=== PATIENT | female | born 1980 | race Hispanic/Latino ===

== ENCOUNTER 2020-01-20 22:04 | Emergency (ER) | payer SELFPAY ==
[~2020-01-20] VITALS: Ht 165.1 cm; Wt 86.2 kg
[2020-01-20] MEDS ORDERED: ACETAMINOPHEN 325 MG TAB PO ONE (23:15)
[2020-01-20] MEDS ORDERED: ACETAMINOPHEN 325 MG TAB ONE (23:16)
--- NOTE | 2020-01-20 23:36 | Emergency Department Note ---
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 Historian: Patient Arrival Mode: Car Onset (how long ago): day(s) (3) Location: HEAD, BODY Quality: FEVER, COUGH, HEADACHE, LOSS OF SMELL Radiation: Reports non-radiation Severity: moderate Onset quality: gradual Duration (how long): day(s) (3) Timing of current episode: constant Progression: worsening Chronicity: new Context: Reports other (PT'S MOTHER POSITIVE FOR COVID AND SHE IS MOTHERS CAREGIVER); Denies recent illness, Denies recent surgery Relieving factors: none Exacerbating factors: none Associated symptoms: Reports denies other symptoms Treatments prior to arrival: none Past Medical/Family History Physician Review I have reviewed the patient's past medical and family history. Any updates have been documented here. Past Medical History Recent Fever: Yes Clinical Suspicion of Infectio: Yes New/Unexplained Change in Ment: No Past Medical History: Diabetes Other Medical History: PSORIASIS Other Surgery: ABDOMINOPLASTY Family History Family history of heart diseas: No Other family history HTN,DM Other Last Tetanus: OOD Review of Systems Review of Systems Constitutional: Reports as per HPI EENTM: Reports no symptoms Cardiovascular: Reports no symptoms Respiratory: Reports as per HPI Gastrointestinal: Reports no symptoms Genitourinary: Reports no symptoms Musculoskeletal: Reports no symptoms Integumentary: Reports no symptoms Neurological: Reports no symptoms Psychological: Reports no symptoms Endocrine: Reports no symptoms Hematological/Lymphatic: Reports no symptoms Physical Exam Related Data Allergies: Coded Allergies: No Known Allergies (Unverified , 03/25/17) Triage Vital Signs Vital Signs Date Time Temp Pulse Resp B/P (MAP) Pulse Ox O2 Delivery O2 Flow Rate FiO2 01/20/20 22:56 100.1 111 18 116/77 95 Vital signs reviewed: Yes Physical Exam CONSTITUTIONAL Constitutional: Present well-developed, Present well-nourished HENT HENT: Present normocephalic, Present atraumatic, Present oropharynx clear/moist, Present nose normal HENT L/R: Present left ext ear normal, Present right ext ear normal EYES Eyes: Reports PERRL, Reports conjunctivae normal NECK Neck: Present ROM normal PULMONARY Pulmonary: Present effort normal, Present breath sounds normal CARDIOVASCULAR Cardiovascular: Present regular rhythm, Present heart sounds normal, Present capillary refill normal, Present tachycardia (110) GASTROINTESTINAL Abdominal: Present soft, Present nontender, Present bowel sounds normal GENITOURINARY Genitourinary: Present exam deferred SKIN Skin: Present warm, Present dry MUSCULOSKELETAL Musculoskeletal: Present ROM normal NEUROLOGICAL Neurological: Present alert, Present oriented x 3, Present no gross motor or sensory deficits PSYCHOLOGICAL Psychological: Present mood/affect normal, Present judgement normal Results Laboratory Laboratory Laboratory Tests Test 01/21/20 02:12 01/20/20 23:10 01/20/20 23:07 01/20/20 23:06 Lactic Acid Level 0.9 mmol/L (0.5-2.0) 2.7 mmol/L (0.5-2.0) Urine Color Yellow (YELLOW) Urine Clarity Clear (CLEAR) Urine pH 6 (5 - 7) Urine Specific Roslyn 1.015 (1.010-1.025) Urine Protein Negative (NEGATIVE) Urine Glucose (UA) 2+ (NEGATIVE) Urine Ketones Negative (NEGATIVE) Urine Blood 1+ (NEGATIVE) Urine Nitrite Negative (NEGATIVE) Urine Bilirubin Negative (NEGATIVE) Urine Urobilinogen 1 mg/dL (0.2 - 1) Urine Leukocyte Esterase Negative (NEGATIVE) Urine RBC 6-10 /HPF (0-5) Urine WBC 21-50 /HPF (0-5) Urine Epithelial Cells Few /LPF (NONE) Urine Transitional Epithelial Cells Few (NONE) Urine Bacteria Many /HPF (NONE) White Blood Count 3.80 x10e3/uL (4.8-10.8) Red Blood Count 6.00 x10e6/uL (3.6-5.1) Hemoglobin 13.7 g/dL (12.0-16.0) Hematocrit 44.1 % (34.2-44.1) Mean Corpuscular Volume 73.5 fL (81-99) Mean Corpuscular Hemoglobin 22.8 pg (28-32) Mean Corpuscular Hemoglobin Concent 31.1 g/dL (31-35) Red Cell Distribution Width 15.9 % (11.7-14.4) Platelet Count 110 x10e3/uL (140-360) Neutrophils (%) (Auto) 55.7 % (38.7-80.0) Lymphocytes (%) (Auto) 39.2 % (18.0-39.1) Monocytes (%) (Auto) 4.2 % (4.4-11.3) Eosinophils (%) (Auto) 0.3 % (0.0-6.0) Basophils (%) (Auto) 0.3 % (0.0-1.0) Neutrophils # (Auto) 2.1 (2.1-6.9) Lymphocytes # (Auto) 1.5 (1.0-3.2) Monocytes # (Auto) 0.2 (0.2-0.8) Eosinophils # (Auto) 0.0 (0.0-0.4) Basophils # (Auto) 0.0 (0.0-0.1) Absolute Immature Granulocyte (auto 0.01 x10e3/uL (0-0.1) Sodium Level 138 mmol/L (136-145) Potassium Level 3.8 mmol/L (3.5-5.1) Chloride Level 100 mmol/L (98-107) Carbon Dioxide Level 24 mmol/L (22-29) Anion Gap 17.8 mmol/L (8-16) Blood Urea Nitrogen 8 mg/dL (7-26) Creatinine 0.69 mg/dL (0.57-1.11) Estimat Glomerular Filtration Rate > 60 ML/MIN (60-) BUN/Creatinine Ratio 12 (6-25) Glucose Level 167 mg/dL (74-118) Calcium Level 8.9 mg/dL (8.4-10.2) Total Bilirubin 0.2 mg/dL (0.2-1.2) Aspartate Amino Transf (AST/SGOT) 20 IU/L (5-34) Alanine Aminotransferase (ALT/SGPT) 27 IU/L (0-55) Alkaline Phosphatase 94 IU/L (40-150) Total Protein 7.3 g/dL (6.5-8.1) Albumin 3.4 g/dL (3.5-5.0) Globulin 3.9 g/dL (2.3-3.5) Albumin/Globulin Ratio 0.9 (0.8-2.0) Laboratory Tests Test 01/20/20 23:06 Lab results reviewed: Yes Imaging Imaging results reviewed: Yes Impressions EXAMINATION: PA and lateral views of the chest. COMPARISON: None CLINICAL HISTORY: Fever, headache, cough, bodyaches DISCUSSION: Lines/tubes: None. Lungs: The lungs are well inflated. Ill-defined vague patchy interstitial opacities in the left mid and lower lung and to a lesser degree right mid lung. There is no evidence of consolidation or pulmonary edema. Pleura: There is no pleural effusion or pneumothorax. Heart and mediastinum: Cardiomediastinal silhouette is unremarkable. Pulmonary vasculature is normal. Bones and soft tissues: No acute bony abnormalities. IMPRESSION: Findings in bilateral lungs may reflect early pneumonia (including viral) in the appropriate clinical setting Signed by: Dr. Liborio Garcia M.D. on 01/20/2020 11:48 PM Assessment & Plan Medical Decision Making MDM PT WITH BODYACHE, FEVER, COUGH, SOB WITH EXPOSURE TO FAMILY MEMBER WITH COVID 19 CBC, CMP, LACTIC ACID, CXR, UA, URINE CULTURE, BLOOD CULTURE, COVID 19, TO EVAL FOR SEPSIS, PNEUMONIA, UTI, COVID 19, ELECTROLYTE ABNORMALITY. ROCEPHIN 1 GRAM IV ORDERED TYLENOL 650 MG PO ORDERED NS 1 LITER IV BOLUS ORDERED PT WITH COVID 19 AND UTI, PT VITALS STABLE, RR 18, OXYGEN SATURATION ON ROOM AIR 97% ON ROOM AIR DISCHARGED HOME WITH OMNICEF 300 MG PO BID FOR 10 DAYS, ZPAK DIRECTED Assessment & Plan Final Impression: (1) COVID-19 (2) UTI (urinary tract infection) (3) Fever Depart Disposition: HOME, SELF-CARE Last Vital Signs Date Time Temp Pulse Resp B/P (MAP) Pulse Ox O2 Delivery O2 Flow Rate FiO2 01/20/20 22:56 100.1 111 18 116/77 95 Medications in the ED Acetaminophen 650 mg ONCE ONCE PO ; Start 01/20/20 at 23:15; Stop 01/20/20 at 23:16; Status DC Acetaminophen 650 mg STK-MED ONCE .ROUTE ; Start 01/20/20 at 23:16; Stop 12/29 10/16 at 23:11; Status DC FERNANDO ESPINOZA MD Jan 20, 2020 23:36
[2020-01-20 23:44] LABS: BASOPHILS % 0.3 % (0.0-1.0); EOSINOPHILS % 0.3 % (0.0-6.0); HEMATOCRIT 44.1 % (34.2-44.1); HEMOGLOBIN 13.7 g/dL (12.0-16.0); LYMPHOCYTES # (AUTO) 1.5 (1.0-3.2); LYMPHOCYTES % 39.2 % (18.0-39.1); MEAN CORPUSCULAR HEMOGLOBIN 22.8 pg (28-32); MEAN CORPUSCULAR HGB CONC 31.1 g/dL (31-35); MEAN CORPUSCULAR VOLUME 73.5 fL (81-99); MONOCYTES # (AUTO) 0.2 (0.2-0.8); MONOCYTES % 4.2 % (4.4-11.3); NEUTROPHILS # (AUTO) 2.1 (2.1-6.9); NEUTROPHILS % 55.7 % (38.7-80.0); PLATELET COUNT 110 x10e3/uL (140-360); RED CELL DISTRIBUTION WIDTH 15.9 % (11.7-14.4)
[2020-01-20] MEDS ORDERED: SODIUM CHLORIDE 0.9% 1000ML 1,000 ML IV ONE (23:45)
[2020-01-20] MEDS ORDERED: CEFTRIAXONE SOD 1 GM/NS 50 ML 50 ML IV ONE (23:45)
--- NOTE | 2020-01-20 23:52 | Diagnostic Imaging Report ---
EXAMINATION: PA and lateral views of the chest. COMPARISON: None CLINICAL HISTORY: Fever, headache, cough, bodyaches DISCUSSION: Lines/tubes: None. Lungs: The lungs are well inflated. Ill-defined vague patchy interstitial opacities in the left mid and lower lung and to a lesser degree right mid lung. There is no evidence of consolidation or pulmonary edema. Pleura: There is no pleural effusion or pneumothorax. Heart and mediastinum: Cardiomediastinal silhouette is unremarkable. Pulmonary vasculature is normal. Bones and soft tissues: No acute bony abnormalities. IMPRESSION: Findings in bilateral lungs may reflect early pneumonia (including viral) in the appropriate clinical setting Signed by: Dr. Liborio Garcia M.D. on 01/20/2020 11:48 PM
[2020-01-20 23:58] LABS: ALANINE AMINOTRANSFERASE 27 IU/L (0-55); ALBUMIN 3.4 g/dL (3.5-5.0); ALBUMIN/GLOBULIN RATIO 0.9 (0.8-2.0); ALKALINE PHOSPHATASE 94 IU/L (40-150); ANION GAP 17.8 mmol/L (8-16); BLOOD UREA NITROGEN 8 mg/dL (7-26); BUN/CREATININE RATIO 12 (6-25); CALCIUM 8.9 mg/dL (8.4-10.2); CARBON DIOXIDE 24 mmol/L (22-29); CHLORIDE 100 mmol/L (98-107); CREATININE, SERUM 0.69 mg/dL (0.57-1.11); EST GLOMERULAR FILTRATION RATE > 60 ML/MIN (60-); GLUCOSE 167 mg/dL (74-118); POTASSIUM 3.8 mmol/L (3.5-5.1); SODIUM 138 mmol/L (136-145)
[2020-01-21 00:23] LABS: BILIRUBIN,URINE NEGATIVE (NEGATIVE); CLARITY,URINE CLEAR (CLEAR); COLOR,URINE YELLOW (YELLOW); KETONES,URINE NEGATIVE (NEGATIVE); LEUKOCYTE ESTERASE ,URINE NEGATIVE (NEGATIVE); NITRITE,URINE NEGATIVE (NEGATIVE); PROTEIN,URINE DIPSTICK NEGATIVE (NEGATIVE); URINE UROBILINOGEN 1 mg/dL (0.2 - 1)
[2020-01-21 00:32] LABS: BACTERIA,URINE MANY /HPF; EPITHELIAL CELLS,URINE FEW /LPF; TRANSITIONAL EPI CELLS,URINE FEW; WBC,URINE (MAN) 21-50 /HPF (0-5)
[2020-01-21 03:26] VITALS: BP 113/59
== END 2020-01-21 03:44 | disposition home or self-care (01) ==
LOC: ER 22:04
DX: R50.9 Fever, unspecified (principal); R05 Cough; U07.1 COVID-19; R51 Headache; N39.0 Urinary tract infection, site not specified; E11.9 Type 2 diabetes mellitus without complications; L40.9 Psoriasis, unspecified
CPT/HCPCS: 36415; 71046; 80053; 81001; 83605; 85025; 87040; 87635; 99284

== ENCOUNTER 2022-10-10 17:01 | Emergency (ER) | payer MEDICARE, OTHER, SELFPAY ==
[~2022-10-10] VITALS: Ht 165.1 cm; Wt 86.2 kg
[2022-10-10] MEDS ORDERED: SODIUM CHLORIDE FLUSH 10 ML SYR IV PRN (18:00)
[2022-10-10] MEDS ORDERED: LACTATED RINGER'S 2,000 ML IV ONE (18:00)
[2022-10-10] MEDS ORDERED: INSULIN REGULAR, HUMAN 100 UNIT/1 ML IV ONE (18:00)
[2022-10-10 18:22] LABS: BASOPHILS % 0.2 % (0.0-1.0); EOSINOPHILS # (AUTO) 0.2 (0.0-0.4); EOSINOPHILS % 2.3 % (0.0-6.0); HEMATOCRIT 42.5 % (34.2-44.1); HEMOGLOBIN 12.8 g/dL (12.0-16.0); LYMPHOCYTES # (AUTO) 1.7 (1.0-3.2); LYMPHOCYTES % 25.8 % (18.0-39.1); MEAN CORPUSCULAR HEMOGLOBIN 23.2 pg (28-32); MEAN CORPUSCULAR HGB CONC 30.1 g/dL (31-35); MONOCYTES # (AUTO) 0.3 (0.2-0.8); MONOCYTES % 5.2 % (4.4-11.3); NEUTROPHILS # (AUTO) 4.4 (2.1-6.9); NEUTROPHILS % 66.2 % (38.7-80.0); PLATELET COUNT 261 x10e3/uL (140-360); RED BLOOD COUNT 5.52 x10e6/uL (3.6-5.1); RED CELL DISTRIBUTION WIDTH 14.4 % (11.7-14.4)
[2022-10-10 18:32] LABS: ALBUMIN 3.5 g/dL (3.5-5.0); ALBUMIN/GLOBULIN RATIO 0.9 (0.8-2.0); ANION GAP 14.9 mmol/L (8-16); CALCIUM 9.2 mg/dL (8.4-10.2); CREATININE, SERUM 0.78 mg/dL (0.57-1.11); MAGNESIUM 1.6 MG/DL (1.3-2.1); PHOSPHORUS 3.1 MG/DL (2.3-4.7); POTASSIUM 3.9 mmol/L (3.5-5.1)
== END 2022-10-10 21:16 | disposition home or self-care (01) ==
LOC: ER 17:16
DX: E11.65 Type 2 diabetes mellitus with hyperglycemia (principal); L40.9 Psoriasis, unspecified
CPT/HCPCS: 36415; 80053; 82948; 83735; 84100; 84702; 85025; 99284; J7121

== ENCOUNTER 2022-12-28 19:10 | Observation (INO) | payer MEDICARE, OTHER, SELFPAY ==
[~2022-12-28] VITALS: Ht 165.1 cm; Wt 83.7 kg
[2022-12-28] MEDS ORDERED: TETRACAINE HCL 0.5% OPTH SOLN 4 ML BTL ONE (19:19)
[2022-12-28] MEDS ORDERED: FLUORESCEIN SOD(OPTH) 1 MG STRP ONE (19:19)
[2022-12-28] MEDS ORDERED: EYE IRRIGATION (OPTH) 120 ML BTL ONE (19:20)
[2022-12-28] MEDS ORDERED: TETRACAINE HCL 0.5% OPTH SOLN 4 ML BTL OP ONE (19:30)
[2022-12-28] MEDS ORDERED: FLUORESCEIN SOD(OPTH) 1 MG STRP OP ONE (19:30)
[2022-12-28] MEDS ORDERED: HYDROCODONE/APAP 5MG-325MG TAB PO ONE (19:30)
[2022-12-28 19:43] LABS: BASOPHILS % 0.2 % (0.0-1.0); EOSINOPHILS # (AUTO) 0.3 (0.0-0.4); EOSINOPHILS % 3.7 % (0.0-6.0); HEMATOCRIT 45.5 % (34.2-44.1); HEMOGLOBIN 14.2 g/dL (12.0-16.0); LYMPHOCYTES # (AUTO) 2.1 (1.0-3.2); LYMPHOCYTES % 25.1 % (18.0-39.1); MEAN CORPUSCULAR HEMOGLOBIN 22.8 pg (28-32); MEAN CORPUSCULAR HGB CONC 31.2 g/dL (31-35); MEAN CORPUSCULAR VOLUME 72.9 fL (81-99); MONOCYTES # (AUTO) 0.3 (0.2-0.8); MONOCYTES % 3.9 % (4.4-11.3); NEUTROPHILS # (AUTO) 5.6 (2.1-6.9); NEUTROPHILS % 66.9 % (38.7-80.0); PLATELET COUNT 292 x10e3/uL (140-360); RED BLOOD COUNT 6.24 x10e6/uL (3.6-5.1); RED CELL DISTRIBUTION WIDTH 16.1 % (11.7-14.4)
[2022-12-28] MEDS ORDERED: EYE IRRIGATION (OPTH) 120 ML BTL OP ONE (20:00)
[2022-12-28 20:02] LABS: ALBUMIN 3.8 g/dL (3.5-5.0); ALBUMIN/GLOBULIN RATIO 0.8 (0.8-2.0); ANION GAP 18.5 mmol/L (8-16); CALCIUM 9.3 mg/dL (8.4-10.2); CREATININE, SERUM 0.74 mg/dL (0.57-1.11); POTASSIUM 3.5 mmol/L (3.5-5.1)
[2022-12-28] MEDS ORDERED: IOPAMIDOL 370 MG/ML 100 ML INFUS..BTL INJ ONE (20:10)
[2022-12-28] MEDS ORDERED: ONDANSETRON HCL INJ 2MG/ML 2ML 2 MG/ML VIAL ONE (21:58)
[2022-12-28] MEDS ORDERED: Morphine 4mg INJECTION 4 MG/ML INJ ONE (21:59)
[2022-12-28] MEDS ORDERED: ACETAMINOPHEN 325 MG TAB PO PRN (22:00)
[2022-12-28] MEDS ORDERED: DEXTROSE 50% SYRINGE 50 ML IV PRN (22:00)
[2022-12-28] MEDS: Morphine 4mg INJECTION 4 MG/ML INJ IV PRN (22:04)
[2022-12-28] MEDS: ONDANSETRON HCL INJ 2MG/ML 2ML 2 MG/ML VIAL IV PRN (22:04)
[2022-12-28] MEDS: Vancomycin IV 1 GM in SODIUM CHLORIDE 0.9% 250ML 250 ML IV SCH (23:02)
[2022-12-29] VITALS (8 sets, daily range): BP systolic 111–133; BP diastolic 66–87; PULSE 88–94; RESP 18–20; TEMP 97.3–98.6; O2SAT 98–100
[2022-12-29] MEDS ORDERED: METFORMIN HCL500 MG PO (01:12)
[2022-12-29] MEDS ORDERED: TALTZ AUTO80 MG/1 ML SC (01:12)
[2022-12-29] MEDS ORDERED: VICTOZA 2-0.6 MG/0.1 SC (01:12)
[2022-12-29] MEDS: Morphine 4mg INJECTION 4 MG/ML INJ IV PRN (05:41)
[2022-12-29] MEDS: ONDANSETRON HCL INJ 2MG/ML 2ML 2 MG/ML VIAL IV PRN (05:41)
[2022-12-29 07:26] LABS: BASOPHILS % 0.5 % (0.0-1.0); EOSINOPHILS # (AUTO) 0.3 (0.0-0.4); EOSINOPHILS % 3.8 % (0.0-6.0); HEMATOCRIT 42.9 % (34.2-44.1); HEMOGLOBIN 13.1 g/dL (12.0-16.0); LYMPHOCYTES # (AUTO) 1.6 (1.0-3.2); LYMPHOCYTES % 21.7 % (18.0-39.1); MEAN CORPUSCULAR HEMOGLOBIN 22.5 pg (28-32); MEAN CORPUSCULAR HGB CONC 30.5 g/dL (31-35); MEAN CORPUSCULAR VOLUME 73.8 fL (81-99); MONOCYTES # (AUTO) 0.4 (0.2-0.8); NEUTROPHILS # (AUTO) 5.1 (2.1-6.9); NEUTROPHILS % 68.5 % (38.7-80.0); PLATELET COUNT 242 x10e3/uL (140-360); RED BLOOD COUNT 5.81 x10e6/uL (3.6-5.1); RED CELL DISTRIBUTION WIDTH 15.5 % (11.7-14.4)
[2022-12-29 07:49] LABS: ALBUMIN 3.2 g/dL (3.5-5.0); ALBUMIN/GLOBULIN RATIO 0.8 (0.8-2.0); ANION GAP 13.1 mmol/L (8-16); CALCIUM 8.4 mg/dL (8.4-10.2); CREATININE, SERUM 0.65 mg/dL (0.57-1.11); POTASSIUM 4.1 mmol/L (3.5-5.1)
[2022-12-29] MEDS: INSULIN REGULAR, HUMAN 100 UNIT/1 ML SQ SCH ×3 (09:02→17:02)
[2022-12-29] MEDS: Vancomycin IV 1 GM in SODIUM CHLORIDE 0.9% 250ML 250 ML IV SCH (12:37)
[2022-12-29] MEDS ORDERED: CEPHALEXIN500 MG PO (18:36)
[2022-12-29] MEDS ORDERED: ONDANSETRON HCL 4 MG ORAL DISINTEGRATING TAB PO PRN (18:45)
== END 2022-12-29 19:16 | disposition home or self-care (01) ==
LOC: ER 19:20 → ERHOLD 22:17 → INTOOBSV 22:17 → MED/SURG3 12-29 00:07
PROVIDERS: ADMIT Family Medicine; ATTEND Family Medicine
DX: H05.011 Cellulitis of right orbit (principal); E11.65 Type 2 diabetes mellitus with hyperglycemia; Z79.84 Long term (current) use of oral hypoglycemic drugs; L40.9 Psoriasis, unspecified; Z11.52 Encounter for screening for COVID-19; Z79.69 Long term (current) use of other immunomodulators and immunosuppressants; Z79.899 Other long term (current) drug therapy
CPT/HCPCS: 0223U; 36415 ×2; 70481; 80053 ×2; 82948 ×2; 84702; 85025 ×2; 87040; 99284; G0378 ×2; J2270 ×2; J2405 ×2; J2543 ×2; J3370 ×2; J7050 ×2; Q9967